=== PATIENT | female | born 1970 | race Caucasian/White ===

== ENCOUNTER 2018-08-20 17:14 | Emergency (ER) | payer BC, OTHER ==
[~2018-08-20] VITALS: Ht 160 cm; Wt 65.8 kg
--- NOTE | 2018-08-20 17:28 | ED Headache ---
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 She states she is from [place], here for a . She takes MS Contin 15 mg twice a day, Zanaflex, lorazepam for pain control. 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 Timing/Duration: 4-6 hours Severity/Quality: moderate Location: temporal Prior Headaches/Recent Trauma: frequent headaches Modifying Factors: worse with exposure to light Allergies and Home Medications Allergies Coded Allergies: No Known Drug Allergies (Unverified , 08/20/18) Patient Home Medication List Home Medication List Reviewed: Yes Review of Systems Review of Systems Constitutional: see HPI Eyes: No Symptoms Reported Ears, Nose, Mouth, Throat: see HPI Respiratory: no symptoms reported Cardiovascular: no symptoms reported Genitourinary: no symptoms reported Musculoskeletal: no symptoms reported Skin: no symptoms reported Psychiatric/Neurological: See HPI, Headache Past Oyxtvet-Zcgail-Wptnkf Hx Patient Social History Recent Foreign Travel: No Contact w/Someone Who Travel: No Physical Exam Vital Signs Capillary Refill : Height, Weight, BMI Height: '" Weight: lbs. oz. kg; BMI Method: General Appearance: WD/WN, no apparent distress, other (arrives via wheelchair because of her migraine pain. Keeps her eyes closed when talking to me.) HEENT: PERRL/EOMI, normal ENT inspection Respiratory: no respiratory distress, no accessory muscle use Extremities: normal range of motion, non-tender Psychiatric: alert, oriented x 3 Crainal Nerves: normal hearing, normal speech Skin: normal color, warm/dry (I see I if he could just albeit pictures ibuprofen with) Progress/Results/Core Measures Results/Orders My Orders Orders - SAM SANCHEZ APRN Diphenhydramine Injection (Benadryl Inje (08/20/18 17:30) Ketorolac Injection (Toradol Injection) (08/20/18 17:30) Ondansetron Injection (Zofran Injectio (08/20/18 17:30) Lactated Ringers (Lr 1000 Ml Iv Solution (08/20/18 17:30) Departure Impression Primary Impression: Headache Qualified Codes: R51 - Headache Disposition: 01 HOME, SELF-CARE Condition: Stable Departure-Patient Inst. Decision time for Depature: 17:29 Referrals: NO,LOCAL PHYSICIAN (PCP/Family) Primary Care Physician Patient Instructions: Headache, Adult (DC) Scripts Tizanidine HCl (Zanaflex) 4 Mg Tablet 4 MG PO BID, #10 TAB Prov: SAM SANCHEZ APRN 08/20/18 SAM SANCHEZ APRN Aug 20, 2018 17:28
[2018-08-20] MEDS ORDERED: LACTATED RINGERS 1,000 ML IV SCH (17:30)
[2018-08-20] MEDS ORDERED: ONDANSETRON 4 MG/2 ML (SDV) Z0FRAN IVP ONE (17:30)
[2018-08-20] MEDS ORDERED: KETOROLAC 30 MG/ML VIAL IVP ONE (17:30)
[2018-08-20] MEDS ORDERED: diphenhydrAMINE 50 MG/ML INJ (BENADRYL) IVP ONE (17:30)
[2018-08-20] MEDS ORDERED: TIZA4TAB11 PO (17:30)
[2018-08-20] MEDS ORDERED: CHOL100048 PO (18:03)
[2018-08-20] MEDS ORDERED: MORP15TA69 PO (18:03)
[2018-08-20] MEDS ORDERED: MAGN400C PO (18:03)
[2018-08-20] MEDS ORDERED: ONDN4T PO (18:03)
[2018-08-20] MEDS ORDERED: LORA-407 PO (18:03)
[2018-08-20 18:39] VITALS: BP 149/106
== END 2018-08-20 18:41 | disposition home or self-care (01) ==
LOC: ER 17:16
DX: R51 Headache (principal); Z86.69 Personal history of other diseases of the nervous system and sense organs
CPT/HCPCS: 96361; 96374; 96375